=== PATIENT | male | born 1945 | race Caucasian/White ===

== ENCOUNTER 2019-12-16 08:38 | Emergency (ER) | payer OTHER ==
[~2019-12-16] VITALS: Ht 175.3 cm; Wt 76.7 kg
[2019-12-16 08:41] VITALS: Ht 175.3 cm; Wt 76.7 kg
[2019-12-16 11:28] VITALS: BP 104/75
== END 2019-12-16 11:28 | disposition home or self-care (01) ==
LOC: ED 08:38
DX: J44.1 Chronic obstructive pulmonary disease with (acute) exacerbation (principal); F17.210 Nicotine dependence, cigarettes, uncomplicated; I10 Essential (primary) hypertension; E78.00 Pure hypercholesterolemia, unspecified; Z86.73 Personal history of transient ischemic attack (TIA), and cerebral infarction without residual deficits
CPT/HCPCS: 99406; J7512; Q0092